=== PATIENT | male | born 1960 | race Caucasian/White ===

== ENCOUNTER 2020-11-26 11:19 | Observation (INO) | payer MEDICARE, BC ==
[~2020-11-26] VITALS: Ht 177.8 cm; Wt 131.5 kg
[~2020-11-26 11:19] MED LIST: ASPIRIN EC81 MG PO; BACTROBAN OINT22 GM EXT; BENADRYL 25MG C25 MG PO; CLEOCIN HCL300 MG PO; COMBIVENT RESPIM4 GM INH; CRESTOR20 MG PO; DOXYCYCLINE HY100 M2 PO; ELIQUIS 5 MG TAB5 MG PO; FEOSOL325 MG PO; FLOMAX 0.4 MG0.4 MG PO; FLONASE 0.05% N16 GM; HUMALOG PUMP; HUMALOG100 UNIT/1 SQ; LANTUS INS100 UTS/M1 SQ; LASIX80 MG PO; LOPRESSOR 25 MG25 MG GT; LOPRESSOR 25 MG25 MG PO; LOPRESSOR100 MG PO; LOTRIMIN CREAM15 GM TOP; LOVAZA1 GM PO; LYRICA100 MG PO; LYRICA50 MG PO; MODAFINIL200 MG PO; MUPIROCIN30 GM TP; NEXIUM40 MG PO; NORCO 10-325 T1 EACH PO; OMEGA 3 FISH O1 EACH PO; OMNICEF 300 MG300 MG PO; PHOSLO 667 MG667 MG PO; REGLAN 10 MG TA10 MG PO; RENVELA800 MG PO; SYNTHROID300 MCG PO; VENTOLIN HFA 66.7 GM INH; VIBRAMYCIN100 MG PO; ZOLOFT100 MG PO
[2020-11-26 12:45] LABS: HEMOGLOBIN 9.5 gm/dl (14.0-17.5); RED BLOOD COUNT 3.43 M/UL (4.20-5.50); WHITE BLOOD COUNT 9.2 K/UL (4.5-11.0)
[2020-11-26 13:20] LABS: BUN/CREATININE RATIO 6 (0-10)
[2020-11-26] MEDS ORDERED: RENVELA800 MG PO (17:45)
[2020-11-26] MEDS ORDERED: AMLODIPINE BESYL5 MG PO (17:47)
[2020-11-26] MEDS ORDERED: REGLAN10 MG PO (17:48)
[2020-11-27 05:44] LABS: HEMOGLOBIN 9.5 gm/dl (14.0-17.5); RED BLOOD COUNT 3.4 M/UL (4.20-5.50); WHITE BLOOD COUNT 9.1 K/UL (4.5-11.0)
[2020-11-28 04:50] LABS: HEMOGLOBIN 8.1 gm/dl (14.0-17.5)
[2020-11-28 04:51] LABS: RED BLOOD COUNT 2.96 M/UL (4.20-5.50); WHITE BLOOD COUNT 5.4 K/UL (4.5-11.0)
[2020-11-28] MEDS ORDERED: DOXYCYCLINE HY100 MG PO (16:01)
== END 2020-11-28 16:59 | disposition home health service (06) ==
LOC: ER1 11:19 → M/S 16:15 → CDU 16:15 → M/S 22:51
PROVIDERS: Physician Assistant; ADMIT Internal Medicine
DX: I13.2 Hypertensive heart and chronic kidney disease with heart failure and with stage 5 chronic kidney disease, or end stage renal disease (principal); E11.22 Type 2 diabetes mellitus with diabetic chronic kidney disease; N18.6 End stage renal disease; I50.32 Chronic diastolic (congestive) heart failure; L03.115 Cellulitis of right lower limb; D63.1 Anemia in chronic kidney disease; I25.10 Atherosclerotic heart disease of native coronary artery without angina pectoris; J96.11 Chronic respiratory failure with hypoxia; G47.33 Obstructive sleep apnea (adult) (pediatric); I27.20 Pulmonary hypertension, unspecified; E03.9 Hypothyroidism, unspecified; E66.01 Morbid (severe) obesity due to excess calories; I07.1 Rheumatic tricuspid insufficiency; E78.5 Hyperlipidemia, unspecified; Z20.822 Contact with and (suspected) exposure to COVID-19; Z95.1 Presence of aortocoronary bypass graft; Z82.49 Family history of ischemic heart disease and other diseases of the circulatory system; Z87.891 Personal history of nicotine dependence; Z99.2 Dependence on renal dialysis; Z66 Do not resuscitate; Z79.01 Long term (current) use of anticoagulants; Z79.4 Long term (current) use of insulin; Z79.82 Long term (current) use of aspirin; Z79.899 Other long term (current) drug therapy
CPT/HCPCS: 36415; 71045; 80048; 80053; 80202; 82550; 82553; 83605; 83874; 84484; 85025; 87040; 90937; 93971; 94660; 94760; 96365; 96366; 96372; 96375; 96376; 97161; 99285; G0257; G0378; J0696; J3370; J7030; J7070; U0002

== ENCOUNTER 2021-03-03 13:19 | Emergency (ER) | payer MEDICARE, BC ==
[~2021-03-03 13:19] MED LIST changes: +AMLODIPINE BESYL5 MG PO; +DOXYCYCLINE HY100 MG PO; +REGLAN10 MG PO
[2021-03-03 14:40] LABS: HEMOGLOBIN 8.4 gm/dl (14.0-17.5); RED BLOOD COUNT 2.97 M/UL (4.20-5.50); WHITE BLOOD COUNT 10.5 K/UL (4.5-11.0)
== END 2021-03-03 16:40 | disposition home or self-care (01) ==
LOC: ER1 13:19
PROVIDERS: Physician Assistant
DX: T82.838A Hemorrhage due to vascular prosthetic devices, implants and grafts, initial encounter (principal); I48.91 Unspecified atrial fibrillation; E11.9 Type 2 diabetes mellitus without complications; Z79.01 Long term (current) use of anticoagulants; Z87.442 Personal history of urinary calculi
CPT/HCPCS: 85025; 85610; 99284

== ENCOUNTER 2021-03-04 15:21 | Emergency (ER) | payer MEDICARE, BC ==
[2021-03-04 16:12] LABS: HEMOGLOBIN 8.7 gm/dl (14.0-17.5); RED BLOOD COUNT 3.07 M/UL (4.20-5.50)
[2021-03-04 16:17] LABS: WHITE BLOOD COUNT 13.8 K/UL (4.5-11.0)
== END 2021-03-04 17:11 | disposition home or self-care (01) ==
LOC: ER1 15:21
PROVIDERS: Physician Assistant
DX: T85.838A Hemorrhage due to other internal prosthetic devices, implants and grafts, initial encounter (principal); I51.9 Heart disease, unspecified
CPT/HCPCS: 12001; 85025; 99284

== ENCOUNTER 2021-10-05 07:27 | Inpatient (IN) | payer MEDICARE, BC ==
[~2021-10-05] VITALS: Ht 185.4 cm; Wt 113.4 kg
[~2021-10-05 07:27] MED LIST changes: +HYDROCODON-ACE1 EAC6 PO; -NORCO 10-325 T1 EACH PO
[2021-10-05 08:45] LABS: HEMOGLOBIN 10.9 gm/dl (14.0-17.5); RED BLOOD COUNT 4.01 M/UL (4.20-5.50); WHITE BLOOD COUNT 7.8 K/UL (4.5-11.0)
[2021-10-05 21:55] LABS: ACINETOBACTER BAUMANNII Not Detected (Negative); CANDIDA ALBICANS Not Detected (Negative); CANDIDA KRUSEI Not Detected (Negative); CANDIDA TROPICALIS Not Detected (Negative); ENTEROCOCCUS Not Detected (Negative); HAEMOPHILUS INFLUENZAE Not Detected (Negative); KLEBSIELLA OXYTOCA Not Detected (Negative); KLEBSIELLA PNEUMONIAE Not Detected (Negative); KPC-CARBAPENEM-RESISTANCE GENE Not Detected (Negative); PROTEUS Not Detected (Negative); PSEUDOMONAS AERUGINOSA Not Detected (Negative); SERRATIA MARCESANS Not Detected (Negative); STAPHYLOCOCCUS Not Detected (Negative); STAPHYLOCOCCUS AUREUS Not Detected (Negative); STREP AGALACTIAE (GROUP B) Not Detected (Negative); STREP PYOGENES (GROUP A) Not Detected (Negative); STREPTOCOCCUS Not Detected (Negative); mecA (METHICILLIN RESIST GENE Not Detected (Negative); vanA/B (VANCOMYCIN RESIST GENE Not Detected (Negative)
[2021-10-05 22:06] LABS: ESCHERICHIA COLI DETECTED (Negative)
[2021-10-06 05:44] LABS: HEMOGLOBIN 9.8 gm/dl (14.0-17.5); RED BLOOD COUNT 3.71 M/UL (4.20-5.50)
[2021-10-06 06:12] LABS: WHITE BLOOD COUNT 31.9 K/UL (4.5-11.0)
== END 2021-10-07 03:26 | disposition expired | DRG 871 ==
LOC: ER1 07:27 → CDU 11:11 → PROG CARE 14:09 → CCU 17:41
PROVIDERS: Emergency Medicine; ADMIT Internal Medicine
PROC: 3E033XZ Introduction of Vasopressor into Peripheral Vein, Percutaneous Approach (ICD-10-PCS; principal; 2021-10-05)
PROC: 06HY33Z Insertion of Infusion Device into Lower Vein, Percutaneous Approach (ICD-10-PCS; 2021-10-05)
PROC: 03HY32Z Insertion of Monitoring Device into Upper Artery, Percutaneous Approach (ICD-10-PCS; 2021-10-05)
PROC: 4A133B1 Monitoring of Arterial Pressure, Peripheral, Percutaneous Approach (ICD-10-PCS; 2021-10-05)
PROC: 4A133J1 Monitoring of Arterial Pulse, Peripheral, Percutaneous Approach (ICD-10-PCS; 2021-10-05)
PROC: 0BH17EZ Insertion of Endotracheal Airway into Trachea, Via Natural or Artificial Opening (ICD-10-PCS; 2021-10-05)
PROC: 5A1945Z Respiratory Ventilation, 24-96 Consecutive Hours (ICD-10-PCS; 2021-10-05)
DX: A41.59 Other Gram-negative sepsis (principal); R65.21 Severe sepsis with septic shock; N18.6 End stage renal disease; J96.21 Acute and chronic respiratory failure with hypoxia; G93.41 Metabolic encephalopathy; J96.22 Acute and chronic respiratory failure with hypercapnia; J18.9 Pneumonia, unspecified organism; I50.32 Chronic diastolic (congestive) heart failure; I13.2 Hypertensive heart and chronic kidney disease with heart failure and with stage 5 chronic kidney disease, or end stage renal disease; E87.2 Acidosis; A41.51 Sepsis due to Escherichia coli [E. coli]; I25.10 Atherosclerotic heart disease of native coronary artery without angina pectoris; E11.22 Type 2 diabetes mellitus with diabetic chronic kidney disease; D63.1 Anemia in chronic kidney disease; E03.9 Hypothyroidism, unspecified; I08.1 Rheumatic disorders of both mitral and tricuspid valves; G47.33 Obstructive sleep apnea (adult) (pediatric); I27.20 Pulmonary hypertension, unspecified; E86.0 Dehydration; R74.01 Elevation of levels of liver transaminase levels; Z66 Do not resuscitate; E78.5 Hyperlipidemia, unspecified; Z99.2 Dependence on renal dialysis; Z95.1 Presence of aortocoronary bypass graft; Z79.01 Long term (current) use of anticoagulants; Z82.49 Family history of ischemic heart disease and other diseases of the circulatory system; Z83.3 Family history of diabetes mellitus; Z82.3 Family history of stroke; Z87.891 Personal history of nicotine dependence; Z79.82 Long term (current) use of aspirin; Z79.899 Other long term (current) drug therapy
CPT/HCPCS: 0240U; 31500; 36415; 36600; 70450; 71045; 71250; 80048; 80053; 80202; 80307; 82009; 82140; 82533; 82550; 82553; 82803; 82962; 83605; 83690; 83735; 83874; 83880; 84100; 84439; 84443; 84484; 85025; 85384; 85610; 85730; 86140; 87040; 87077; 87150; 87186; 93005; 94002; 94003; 94640; 94660; 94664; 94760; 96374; 96375; 99285; C1751; C9113; G0480; J0456; J0696; J1644; J2185; J2310; J2370; J3010; J3370; J7030; J7040; J7042; J7070